=== PATIENT | female | born 1945 | race Caucasian/White ===

== ENCOUNTER 2023-02-27 18:12 | Emergency (ER) | payer MEDICARE, OTHER, SELFPAY ==
[2023-02-27 18:23] VITALS: BP 177/103; PULSE 73; RESP 18; TEMP 36.7; O2SAT 99; BMI 21.9
--- NOTE | 2023-02-27 18:27 | DI.RAD.S_ITS ---
PROCEDURE: XR WRIST LT MIN 3V INDICATIONS: trip and fall onto out stretched wrist, L pain > R TECHNIQUE: 4 views of the wrist were acquired. COMPARISON: [facility], , XR WRIST RT MIN 3V, 02/27/2023, 18:30. FINDINGS: Bones: No fractures or dislocations. No suspicious bony lesions. Age-appropriate bony degenerative changes are seen. Scaphoid view: No navicular fractures are seen. Soft tissues: No suspicious soft tissue calcifications. IMPRESSION: Negative for displaced fracture by plain film. Dictated by: Yogi Clarke M.D. on 02/27/2023 at 17:50 Approved by: Yogi Clarke M.D. on 02/27/2023 at 17:51
--- NOTE | 2023-02-27 18:27 | DI.RAD.S_ITS ---
PROCEDURE: XR WRIST RT MIN 3V INDICATIONS: trip and fall onto out stretched wrist, L pain > R TECHNIQUE: 4 views of the wrist were acquired. COMPARISON: [facility], CR, XR WRIST LT MIN 3V, 02/27/2023, 18:30. FINDINGS: Bones: No fractures or dislocations. No suspicious bony lesions. Age-appropriate degenerative changes are seen, which are overall most prominent involving the radial aspect of the carpus. There is focal radiocarpal joint degenerative change also seen. Scaphoid view: No navicular fractures are seen. Soft tissues: No suspicious soft tissue calcifications. IMPRESSION: Plain film study within normal limits for age, without a displaced fracture. Dictated by: Yogi Clarke M.D. on 02/27/2023 at 17:51 Approved by: Yogi Clarke M.D. on 02/27/2023 at 17:52
[2023-02-27 19:30] VITALS: PULSE 72
--- NOTE | 2023-02-27 19:46 | ED.UPPEXIN ---
HPI - Extremity Injury (Upper) <MIRANDA Sarah - Last Filed: 02/27/23 20:09> General Chief Complaint: Extremity Injury, Upper Stated Complaint: Fall, wrist pain (both) Time Seen by Provider: 02/27/23 19:36 Source: patient Mode of arrival: Ambulatory History of Present Illness HPI narrative: This is a 78-year-old female who had a fall with bilateral outstretched hands earlier today and now presents with wrist pain of both wrists. She is full range of motion, sensation, complains of pain with twisting movements. States that she had a hyperextension injury to her right thumb in September, she is right-hand dominant. She denies any numbness or tingling, denies any weakness, has an abrasion to bilateral palms, knees and denies any bony pain to her lower extremities. She did not hit her head. Related Data Allergies Allergy/AdvReac Type Severity Reaction Status Date / Time No Known Drug Allergies Allergy Verified 02/27/23 18:27 Review of Systems <MIRANDA Sarah - Last Filed: 02/27/23 20:09> Review of Systems ROS Unobtainable: All systems reviewed & are unremarkable except as noted in HPI and below Patient History <MIRANDA Sarah - Last Filed: 02/27/23 20:09> Social History Smoking Status: Never smoker Smoking Status: Never smoker alcohol intake frequency: 0-2 drinks per day Substance Use Type: does not use Exam <MIRANDA Sarah - Last Filed: 02/27/23 20:09> Narrative Exam Narrative: Reviewed vitals signs and nursing notes. General: Pleasant, sitting upright, in no acute distress, well groomed, afebrile HEENT: symmetrical facial expressions MSK: moves all extremities, no weakness, normal tone, ambulatory without deficit, no tenderness over bilateral distal radius or ulna, no snuffbox tenderness bilaterally, radial pulses 2+, flexion-extension and full range of motion is intact bilaterally. No tenderness over bilateral thumb MCP joints, brisk cap refill. Skin: brisk capillary refill, without rash, abrasions to bilateral palms, knees. No bleeding. Neuro: clear speech and normal cognition, A&O x3, GCS 15, no focal motor or sensation deficits Initial Vital Signs Initial Vital Signs: Vital Signs Temperature 98.1 F 02/27/23 18:23 Pulse Rate 73 02/27/23 18:23 Respiratory Rate 18 02/27/23 18:23 Blood Pressure 177/103 H 02/27/23 18:23 Pulse Oximetry 99 02/27/23 18:23 Oxygen Delivery Method Room Air 02/27/23 18:23 <Ney De León DO - Last Filed: 02/27/23 19:57> Initial Vital Signs Initial Vital Signs: Vital Signs Temperature 98.1 F 02/27/23 18:23 Pulse Rate 73 02/27/23 18:23 Respiratory Rate 18 02/27/23 18:23 Blood Pressure 177/103 H 02/27/23 18:23 Pulse Oximetry 99 02/27/23 18:23 Oxygen Delivery Method Room Air 02/27/23 18:23 Course <MIRANDA Sarah - Last Filed: 02/27/23 20:09> Orders Ordered: ED Orders 02/27/23 18:27 XR wrist LT min 3V Stat XR wrist RT min 3V Stat Vital Signs Vital signs: Vital Signs - 8 hr 02/27/23 18:23 02/27/23 19:30 Temperature 98.1 F Pulse Rate 73 Pulse Rate [Bilateral Radial] 72 Respiratory Rate 18 Blood Pressure 177/103 H Pulse Oximetry 99 Oxygen Delivery Method Room Air <DO Jame Forbes Last Filed: 02/27/23 19:57> Orders Ordered: ED Orders 02/27/23 18:27 XR wrist LT min 3V Stat XR wrist RT min 3V Stat Vital Signs Vital signs: Vital Signs - 8 hr 02/27/23 18:23 02/27/23 19:30 Temperature 98.1 F Pulse Rate 73 Pulse Rate [Bilateral Radial] 72 Respiratory Rate 18 Blood Pressure 177/103 H Pulse Oximetry 99 Oxygen Delivery Method Room Air MDM - Extremity Injury (Upper) <MIRANDA Sarah - Last Filed: 02/27/23 20:09> Imaging Data Extremity x-ray #1: Radiologist's Impression: PROCEDURE:? XR WRIST LT MIN 3V ? INDICATIONS: trip and fall onto out stretched wrist, L pain > R ? TECHNIQUE:? 4 views of the wrist were acquired.? ? COMPARISON:? [facility], CR, XR WRIST RT MIN 3V, 02/27/2023, 18:30. ? FINDINGS:? ? Bones:? No fractures or dislocations.? No suspicious bony lesions.? Age-appropriate bony degenerative changes are seen.? ? Scaphoid view:? No navicular fractures are seen. ? Soft tissues:? No suspicious soft tissue calcifications.? IMPRESSION:? Negative for displaced fracture by plain film. ? ? Dictated by: Yogi Clarke M.D. on 02/27/2023 at 17:50 ? ? Approved by: Yogi Clarke M.D. on 02/27/2023 at 17:51 ? Extremity x-ray #2: Radiologist's Impression: PROCEDURE:? XR WRIST RT MIN 3V ? INDICATIONS: trip and fall onto out stretched wrist, L pain > R ? TECHNIQUE:? 4 views of the wrist were acquired.? ? COMPARISON:? [facility], CR, XR WRIST LT MIN 3V, 02/27/2023, 18:30. ? FINDINGS:? ? Bones:? No fractures or dislocations.? No suspicious bony lesions.? Age-appropriate degenerative changes are seen, which are overall most prominent involving the radial aspect of the carpus.? There is focal radiocarpal joint degenerative change also seen. ? Scaphoid view:? No navicular fractures are seen. ? Soft tissues:? No suspicious soft tissue calcifications.? IMPRESSION:? Plain film study within normal limits for age, without a displaced fracture. ? ? Dictated by: Yogi Clarke M.D. on 02/27/2023 at 17:51 ? ? Approved by: Yogi Clarke M.D. on 02/27/2023 at 17:52 ? MDM Narrative Medical decision making narrative: Chief Complaint: Bilateral wrist pain after a fall Independent historian: Patient Multiple etiologies for patient's symptoms considered including, but not limited to: Wrist sprain/strain, acute fracture, scaphoid fracture, scares thumb, abrasion, contusion I have independently reviewed the patient's vital signs and nursing notes as well as prior records if available. My interpretation of imaging: Bilateral wrist x-rays without acute fracture Patient reports that she took ibuprofen prior to arrival, Ean wraps were applied to bilateral wrist, she has a thumb spica splint at home which she says that she will wear when she gets home. Exam was unremarkable and her x-rays were negative for fracture or acute abnormality. Social considerations that may affect disposition: none Questions are addressed and there is agreement with the plan and for follow-up. I consulted with the ED attending physician Dr. De León as needed for higher level of care considerations and they were available for discussion and recommendations regarding plan of care and diagnostic testing. Patient is appropriate for outpatient management. Discharge Plan Departure Patient Disposition: Home Clinical Impression: Sprain and strain of wrist, Fall Instructions: DI for Wrist Sprain Activity Restrictions/Additional Instructions: *You have been diagnosed with sprain of both of your wrist without evidence of fracture. For your left wrist please use your thumb spica wrist splint when you get home, use an Ean bandage to help decrease your extra movements and immobilize it until you get there. Ibuprofen and Tylenol are best to take together every 6-8 hours as needed. Please apply something topical like Voltaren gel or Aspercreme. These can offer good pain relief as well as ice. I hope you feel better soon, it was a pleasure to meet you. *What to do: *Please continue to take your regular medications as directed. [ ] New medication prescriptions sent to your pharmacy: [ ] [ ] New medication written as a paper prescription [x ] No new medications given *Please call and schedule follow up with your primary care provider in 2-3 days, at least for an update. Let them know you were seen in the Emergency Department for the above problem. We will electronically transmit a record of today's note if your PCP or specialist is in our system. *If you do not have a primary care provider please contact [phone] to establish care with one of the [facility] primary care providers. *Return to the Emergency Department for worsening symptoms, inability to keep liquids down, fever greater than 101F, chills, or other concerning symptom. Stand Alone Forms: Patient Portal/API <Ney De León, DO - Last Filed: 02/27/23 19:57> [facility]: Dr De León Co-Sign Statement: I was available for consultation during this patient's emergency department visit. This chart is signed by myself for administrative purposes only. I did not have direct contact with this patient during this visit. They were seen independently by the APC.
== END 2023-02-27 19:54 | disposition home or self-care (01) ==
PROVIDERS: Emergency Provider Nurse Practitioner Critical Care Medicine
DX: S63.502A Unspecified sprain of left wrist, initial encounter (principal); S63.501A Unspecified sprain of right wrist, initial encounter; W18.30XA Fall on same level, unspecified, initial encounter
CPT/HCPCS: 73110; 99283